=== PATIENT | female | born 1980 | race Caucasian/White ===

== ENCOUNTER 2020-02-25 20:01 | Emergency (ER) | payer BC | END 2020-02-25 23:00 | disposition left against medical advice (07) | LOC: ER1 20:01 | DX: R06.02 Shortness of breath (principal); Z53.21 Procedure and treatment not carried out due to patient leaving prior to being seen by health care provider ==

== ENCOUNTER → 2020-02-28 | Outpatient (CLI) | payer BC ==
[2020-02-28 15:56] LABS: HEMOGLOBIN 13.9 gm/dl (12.3-15.3); RED BLOOD COUNT 4.42 M/UL (4.00-5.10); WHITE BLOOD COUNT 6.9 K/UL (4.5-11.0)
[2020-02-28 16:26] LABS: BUN/CREATININE RATIO 19 (0-10)
== END ==
LOC: LAB 15:27
PROVIDERS: Nurse Practitioner
DX: R06.02 Shortness of breath (principal); R07.9 Chest pain, unspecified
CPT/HCPCS: 36415; 80053; 82550; 82553; 84439; 84443; 84484; 85025; 85379; 93005

== ENCOUNTER → 2020-09-22 | Outpatient (CLI) | payer BC ==
[~2020-09-22] MED LIST: CARAFATE 1 GM TA1 GM PO; PROAIR HFA8.5 GM INH; PROTONIX40 MG PO
== END ==
LOC: KOH-I 12:25
DX: R06.02 Shortness of breath (principal)
CPT/HCPCS: 71046

== ENCOUNTER 2020-10-04 06:18 | Emergency (ER) | payer BC ==
[2020-10-04 07:08] LABS: HEMOGLOBIN 13.6 gm/dl (12.3-15.3); RED BLOOD COUNT 4.16 M/UL (4.00-5.10); WHITE BLOOD COUNT 6.1 K/UL (4.5-11.0)
[2020-10-04 08:40] LABS: BUN/CREATININE RATIO 17 (0-10)
[2020-10-04] MEDS ORDERED: PROAIR HFA8.5 GM INH (11:44)
[2020-10-04] MEDS ORDERED: CARAFATE 1 GM TA1 GM PO (11:44)
[2020-10-04] MEDS ORDERED: PROTONIX40 MG PO (11:44)
== END 2020-10-04 11:57 | disposition home or self-care (01) ==
LOC: ER1 06:18
PROVIDERS: Urology
DX: R07.9 Chest pain, unspecified (principal)
CPT/HCPCS: 71045; 80053; 82550; 82553; 83690; 83735; 83874; 84439; 84443; 84484; 84703; 85025; 85379; 93005; 96365; 99285; Q0177

== ENCOUNTER 2021-03-22 16:01 | Emergency (ER) | payer OTHER, BC | END 2021-03-22 18:09 | disposition home or self-care (01) | LOC: ER1 16:01 | DX: T14.8XXA Other injury of unspecified body region, initial encounter (principal); M54.50 Low back pain, unspecified; E78.5 Hyperlipidemia, unspecified; V49.40XA Driver injured in collision with unspecified motor vehicles in traffic accident, initial encounter; Y92.410 Unspecified street and highway as the place of occurrence of the external cause | CPT/HCPCS: 71045; 72170; 99283 ==